=== PATIENT | male | born 1990 | race Caucasian/White ===

== ENCOUNTER 2018-07-15 11:27 | Emergency (ER) | payer BC ==
[2018-07-15] MEDS ORDERED: Lidocaine 1% 10 ML MDV INJECT ONE (11:46)
[2018-07-15] MEDS ORDERED: Diphtheria,Pertussis(Acell),Tetanus Vaccine 0.5 ML Syringe IM ONE (11:48)
[2018-07-15] MEDS ORDERED: Diphtheria,Pertussis(Acell),Tetanus Vaccine 0.5 ML Syringe ONE (11:50)
[2018-07-15] MEDS ORDERED: Lidocaine 1% 0 ML ONE (11:50)
--- NOTE | 2018-07-15 12:12 | EDM.PDOC ---
ED HPI GENERAL MEDICAL PROBLEM - General Chief Complaint: Lower Extremity Injury/Pain Stated Complaint: INFECTION Time Seen by Provider: 07/15/18 11:29 Source of Information: Reports: Patient History Limitations: Reports: No Limitations - History of Present Illness INITIAL COMMENTS - FREE TEXT/NARRATIVE: HISTORY AND PHYSICAL: History of present illness: Patient is a 28-year-old male presents to the ED today with concerns of a leg infection. Patient states that he was working and fell on his right knee and had a little cut that became infected. He states about a week ago he cut went pale white and received Bactrim antibiotics. He states he has been taking these as prescribed but does not feel that it is getting any better. He had a prior laceration to that knee that was repaired several years ago. He does have scar tissue from that old injury. Patient denies any surgery to the knee or any hardware placement. Patient denies fever, chills, vomiting, diaphoresis, inability to move his extremities, change in sensation to his extremities. All other review of systems reviewed and negative. Patient denies any health history. Review of systems: As per history of present illness and below otherwise all systems reviewed and negative. Past medical history: As per history of present illness and as reviewed below otherwise noncontributory. Surgical history: As per history of present illness and as reviewed below otherwise noncontributory. Social history: See social history for further information Family history: As per history of present illness and as reviewed below otherwise noncontributory. Physical exam: General: Patient is alert, oriented, and in no acute distress. He is lying comfortably on exam table. HEENT: Atraumatic, normocephalic, pupils equal and reactive bilaterally, negative for conjunctival pallor or scleral icterus, mucous membranes moist, TMs normal bilaterally, throat clear, neck supple, nontender, trachea midline. No drooling or trismus noted. No meningeal signs. No hot potato voice noted. Lungs: Clear to auscultation, breath sounds equal bilaterally, chest nontender. Heart: S1S2, regular rate and rhythm without overt murmur Abdomen: Soft, nondistended, nontender. Negative for masses or hepatosplenomegaly. Negative for costovertebral tenderness. Pelvis: Stable nontender. Genitourinary: Deferred. Rectal: Deferred. Skin: See extremities. Otherwise, intact, warm, dry. No lesions or rashes noted. Extremities: On the right knee, below the patella 3-4 cm, there is a central area that feels dense/"fleshy" that is approximately 2 cm in size. Surrounding this there is an area of pink erythema with some areas of punctate fluctuation surrounding. This extends approximately 6-7 cm in size. Patient has full range of motion of the right knee without pain. Strength fully intact of bilateral extremities. Atraumatic, negative for cords or calf pain. Neurovascular unremarkable. Neuro: Awake, alert, oriented. Cranial nerves II through XII unremarkable. Cerebellum unremarkable. Motor and sensory unremarkable throughout. Exam nonfocal. Notes: I did have Dr Ray look at this patient. She is agreeable with plan of care. Will add Clindamycin onto patient's current antibiotic regiment. Labs today are unremarkable. Lentiform soft tissue attenuation superficial to the patellar tendon with some surrounding soft tissue fullness. This measures 3.8 x 1.2 cm in greatest diameter. Query superficial infrapatellar bursitis. No bone finding of significance. No joint effusion. Anatomic alignment. No radiopaque foreign body. Supportive care measures were reviewed and discussed. Voices understanding and is agreeable to plan of care. Denies any further questions or concerns at this time. Diagnostics: CBC, CMP, knee x-ray Therapeutics: None Prescription: Clindamycin Impression: Knee cellulitis, right Plan: 1. Take medications as prescribed. Keep this area clean and dry. Continue to monitor for signs of improvement. 2. You can use Tylenol or Ibuprofen as needed for pain as directed. 3. Follow-up with orthopedics as discussed. Please call Monday to set this appointment up. 4. Return to the ED as needed and as discussed. Definitive disposition and diagnosis as appropriate pending reevaluation and review of above. Right Knee Pain Score (Numeric/FACES): 3 - Related Data Allergies Allergy/AdvReac Type Severity Reaction Status Date / Time No Known Allergies Allergy Verified 07/15/18 11:41 Home Meds: Home Meds Clindamycin HCl 300 mg PO TID 7 Days #21 capsule 07/15/18 [Rx] Past Medical History - Past Health History Medical/Surgical History: Denies Medical/Surgical History - Past Surgical History HEENT Surgical History: Reports: Tonsillectomy Musculoskeletal Surgical History: Reports: Arthroscopic Knee Social & Family History - Family History Family Medical History: Noncontributory - Tobacco Use Smoking Status *Q: Never Smoker - Recreational Drug Use Recreational Drug Use: No Review of Systems - Review of Systems Review Of Systems: ROS reveals no pertinent complaints other than HPI. ED EXAM, GENERAL - Physical Exam Exam: See Below (see dictation) Course - Vital Signs Last Recorded V/S: Last Vital Signs Temp 97.9 F 07/15/18 13:15 Pulse 76 07/15/18 13:15 Resp 16 07/15/18 13:15 BP 144/89 H 07/15/18 13:15 Pulse Ox 96 07/15/18 13:15 - Orders/Labs/Meds Orders: Active Orders 24 hr Category Date Time Status Vaccines to be Administered [RC] PER UNIT ROUTINE Care 07/15/18 11:48 Active Knee 3V Rt [CR] Stat Exams 07/15/18 11:46 Taken Labs: Laboratory Tests 07/15/18 07/15/18 Range/Units 11:58 11:58 WBC 5.45 (4.0-11.0) K/uL RBC 4.82 (4.50-5.90) M/uL Hgb 14.3 (13.0-17.0) g/dL Hct 41.4 (38.0-50.0) % MCV 85.9 (80.0-98.0) fL MCH 29.7 (27.0-32.0) pg MCHC 34.5 (31.0-37.0) g/dL RDW Std Deviation 38.7 (28.0-62.0) fl RDW Coeff of Maximo 12 (11.0-15.0) % Plt Count 176 (150-400) K/uL MPV 10.30 (7.40-12.00) fL Neut % (Auto) 64.9 (48.0-80.0) % Lymph % (Auto) 24.0 (16.0-40.0) % Harris % (Auto) 8.8 (0.0-15.0) % Eos % (Auto) 1.7 (0.0-7.0) % Baso % (Auto) 0.6 (0.0-1.5) % Neut # (Auto) 3.5 (1.4-5.7) K/uL Lymph # (Auto) 1.3 (0.6-2.4) K/uL Harris # (Auto) 0.5 (0.0-0.8) K/uL Eos # (Auto) 0.1 (0.0-0.7) K/uL Baso # (Auto) 0.0 (0.0-0.1) K/uL Nucleated RBC % 0.0 /100WBC Nucleated RBCs # 0 K/uL Sodium 140 (136-148) mmol/L Potassium 4.6 (3.5-5.1) mmol/L Chloride 105 (98-107) mmol/L Carbon Dioxide 27.2 (21.0-32.0) mmol/L BUN 12 (7.0-18.0) mg/dL Creatinine 0.9 (0.8-1.3) mg/dL Est Cr Clr Drug Dosing 140.81 mL/min Estimated GFR (MDRD) > 60.0 ml/min Glucose 96 (74-106) mg/dL Calcium 8.8 (8.5-10.1) mg/dL Total Bilirubin 0.4 (0.2-1.0) mg/dL AST 20 (15-37) IU/L ALT 36 (14-63) IU/L Alkaline Phosphatase 91 (46-116) U/L Total Protein 7.1 (6.4-8.2) g/dL Albumin 3.9 (3.4-5.0) g/dL Globulin 3.2 (2.6-4.0) g/dL Albumin/Globulin Ratio 1.2 (0.9-1.6) Meds: Medications Discontinued Medications Generic Name Dose Route Start Last Admin Trade Name Freq PRN Reason Stop Dose Admin Diphtheria/Tetanus/Acell Pertussis 0.5 ml 07/15/18 11:48 07/15/18 12:20 Adacel IM 07/15/18 11:49 0.5 ml .ONCE ONE Administration Lidocaine HCl 5 ml 07/15/18 11:46 07/15/18 12:19 Xylocaine 1% INJECT 07/15/18 11:47 Not Given ONETIME ONE Lidocaine HCl 5 ml 07/15/18 12:19 07/15/18 12:19 Xylocaine-Mpf 1% INJECT 07/15/18 12:20 5 ml ONETIME ONE Administration Departure - Departure Time of Disposition: 12:49 Disposition: Home, Self-Care 01 Clinical Impression: Cellulitis Qualifiers: Site of cellulitis: extremity Site of cellulitis of extremity: lower extremity Laterality: right Qualified Code(s): L03.115 - Cellulitis of right lower limb - Discharge Information Prescriptions: Clindamycin HCl 300 mg PO TID 7 Days #21 capsule Instructions: Cellulitis, Adult, [id number] Referrals: PCP,Unknown [Primary Care Provider] - Forms: ED Department Discharge Additional Instructions: The following information is given to patients seen in the emergency department who are being discharged to home. This information is to outline your options for follow-up care. We provide all patients seen in our emergency department with a follow-up referral. The need for follow-up, as well as the timing and circumstances, are variable depending upon the specifics of your emergency department visit. If you don't have a primary care physician on staff, we will provide you with a referral. We always advise you to contact your personal physician following an emergency department visit to inform them of the circumstance of the visit and for follow-up with them and/or the need for any referrals to a consulting specialist. The emergency department will also refer you to a specialist when appropriate. This referral assures that you have the opportunity for follow-up care with a specialist. All of these measure are taken in an effort to provide you with optimal care, which includes your follow-up. Under all circumstances we always encourage you to contact your private physician who remains a resource for coordinating your care. When calling for follow-up care, please make the office aware that this follow-up is from your recent emergency room visit. If for any reason you are refused follow-up, please contact the [facility] Emergency Department at and asked to speak to the emergency department charge nurse. [facility] [address] [place] [id number] [address] [facility] Professional Building [address], [address] [place] [address] 1. Take medications as prescribed. Keep this area clean and dry. Continue to monitor for signs of improvement. 2. You can use Tylenol or Ibuprofen as needed for pain as directed. 3. Follow-up with orthopedics as discussed. Please call Monday to set this appointment up. 4. Return to the ED as needed and as discussed. - My Orders Last 24 Hours: My Active Orders 07/15/18 11:46 Knee 3V Rt [CR] Stat 07/15/18 11:48 Vaccines to be Administered [RC] PER UNIT ROUTINE - Assessment/Plan Last 24 Hours: My Active Orders 07/15/18 11:46 Knee 3V Rt [CR] Stat 07/15/18 11:48 Vaccines to be Administered [RC] PER UNIT ROUTINE
[2018-07-15 12:32] LABS: CHLORIDE,CL 105 mmol/L (98-107); SODIUM,NA 140 mmol/L (136-148)
--- NOTE | 2018-07-16 10:46 | CR ---
EXAM DATE: 07/15/18 PATIENT'S AGE: 28 Patient: LIOR MUNOZ Facility: [place], [place] Site . Site : 1990 Study: XRay Extremity Right KNEE [id number]/[id number] 12:46:48 PM Ordering Physician: ASHLIE POWELL Final Report: INDICATION: Pain. Infection. TECHNIQUE: Two views. FINDINGS: Lentiform soft tissue attenuation superficial to the patellar tendon with some surrounding soft tissue fullness. This measures 3.8 x 1.2 cm in greatest diameter. Query superficial infrapatellar bursitis. No bone finding of significance. No joint effusion. Anatomic alignment. No radiopaque foreign body. Dictated by Tony Allison MD @ Jul 15 2018 1:18PM (Electronic Signature) Report Signed by Proxy. CHRISTINE
== END 2018-07-15 13:20 | disposition home or self-care (01) ==
LOC: MW.ED 11:27
DX: L03.115 Cellulitis of right lower limb (principal); Z23 Encounter for immunization
CPT/HCPCS: 36415; 73562; 80053; 85025; 90471; 90715; 99283; J2001